=== PATIENT | female | born 1965 | race Caucasian/White ===

== ENCOUNTER → 2018-07-27 08:02 | Day surgery (SDC) | payer BC ==
[~2018-07-27 08:02] MED LIST: Acetaminophen TAB* 325 MG PO PRN; Buffered Lidocaine 1% SYRIN* 1 ML/SYRINGE INTRADERM ONE; Bupivacaine 0.5%* 50 ML VIAL ONE; Dexamethasone IV* 4 MG/ML 1 ML (4 MG) ONE; DiMENhydriNATE IV* 50 MG/ML VIAL IV PUSH PRN; HYDROmorphone INJ1* 1 MG/ML SYRINGE ONE; Ketorolac INJ* 30 MG/ML 1 ML VIAL ONE; Lactated Ringers 1000 ML Bag* 1,000 ML IV SCH; Lidocaine 2% PF * 5 ML VIAL ONE; Lidocaine 2% PF* 10 ML AMP ONE; Metoclopramide IV* 5 MG/ML 2 ML VIAL ONE; Midazolam* 1 MG/ML 2 ML VIAL (2 MG) ONE; Naloxone* 0.4 MG/ML 1 ML VIAL IV PRN; Ondansetron INJ* 2 MG/ML VIAL ONE; Propofol* 10 MG/ML 20 ML BTL ONE; Succinylcholine* 20 MG/ML 10 ML VIAL ONE; ceFAZolin 2 GM PREMIX in ORs 2 GM/50 ML BAG ONE; fentaNYL* 50 MCG/ML 2 ML VIAL (100 MCG VIAL) ONE; oxyCODONE TAB* 5 MG TAB ONE
[2018-07-27] MEDS: HYDROmorphone INJ1* 1 MG/ML SYRINGE IV PRN ×5 (12:44→13:23)
[2018-07-27 15:41] VITALS: BP 99/63
--- NOTE | 2018-07-27 20:59 | OP ---
DATE OF OPERATION: 07/27/18 - [facility] DATE OF : 69 SURGEON: Jerry Messer MD AGRICULTURE SPECIALIST: Ilene Hickey PA-C PRE-OP DIAGNOSIS: Degenerative arthritis, right second tarsometatarsal joint. POST-OP DIAGNOSIS: Degenerative arthritis, right second tarsometatarsal joint. OPERATIVE PROCEDURE: Right three-corner fusion with tibial bone graft. DESCRIPTION OF PROCEDURE: The patient was taken to the operating room where we made a longitudinal incision over the dorsum of the first metatarsal. We incised lateral to the EHL tendon and then subperiosteally to visualize the base of the second metatarsal. The capsule between the metatarsal second cuneiform was opened with a 15 blade and retractor was then placed to open the joint. A 2.4 mm fareed was used to repair the joint for arthrodesis. We then opened up the space between the first and second cuneiform and prepared this for arthrodesis similarly. Through a 4 cm proximal incision at the tibia over Gerdy's tubercle, I harvested cancellous bone through a 1 cm corticotomy. Some of the cancellous bone was then placed along the 2 fusion surfaces in the right midfoot. We replaced cancellous bone proximally with allograft chips. Closure of the periosteum was then performed with 2-0 Vicryl, Monocryl for the skin and ander for the skin. We then fixed the midfoot fusion with a distal to proximal lag screw, countersunk and placed over guidepin and this was a partially threaded screw 3.5 mm screw with good purchase. Then, a medial to middle cuneiform screw also under compression 24 mm in length. X-rays intraoperatively showed satisfactory position of the hardware. We irrigated thoroughly, closing the dorsal wound with 3-0 Monocryl, 3-0 nylon and compression dressing and plaster splint applied. [id number]/[facility] #: [id number] [facility] HOSPITALSaige
== END | disposition home or self-care (01) ==
LOC: OR 08:02
PROVIDERS: ATTEND Orthopaedic Surgery
DX: M19.071 Primary osteoarthritis, right ankle and foot (principal); Z72.0 Tobacco use; M19.90 Unspecified osteoarthritis, unspecified site; F32.9 Major depressive disorder, single episode, unspecified
CPT/HCPCS: 76000; 88304; A9270-GY; C1713; C1776; J0330; J0690; J1100; J1170; J1885; J2001; J2250; J2405; J2704; J2765; J3010; J3490